=== PATIENT | female | born 1995 | race Caucasian/White ===

== ENCOUNTER 2020-10-01 13:31 | Observation (INO) | payer OTHER, SELFPAY ==
[2020-10-01 13:54] VITALS: BP 125/65; PULSE 103
[2020-10-01 14:00] VITALS: BP 133/68; PULSE 108
[2020-10-01] MEDS: FAMOTIDINE 20 MG/2 ML VIAL IV PUSH (15:29)
[2020-10-01] MEDS: METOCLOPRAMIDE HCL INJ 10 MG/2 ML VIAL IV PUSH ×2 (15:29→21:12)
[2020-10-01 15:32] LABS: Hematocrit 40.8 % (37.0-47.0); Hemoglobin 13.9 g/dL (12.0-15.0); Mean Corpuscular HGB Conc 34.1 g/dl (32-36); Mean Corpuscular Hemoglobin 28.4 pg (26-34); Mean Corpuscular Volume 83.3 fl (80-100); Mean Platelet Volume 10.1 fl (7.4-10.4); Platelet Count Result 253 k/mm3 (150-375); Red Cell Distribution Width 12.3 % (11.5-14.5)
[2020-10-01 15:47] LABS: Alanine Aminotransferase 22 U/L (4-35); Albumin Level 4.4 g/dL (3.5-5.1); Alkaline Phosphatase 90 U/L (38-126); Anion Gap 5 mmol/L (8-16); Aspartate Amino Transferase 23 U/L (14-36); Bilirubin,Total 0.6 mg/dL (0.2-1.3); Blood Urea Nitrogen 5 mg/dL (7-17); Calcium 9.3 mg/dL (8.4-10.2); Carbon Dioxide 27 mmol/L (22-30); Chloride 101 mmol/L (98-107); Estimated Glomerular Filt Rate > 60; Glucose 81 mg/dL (65-105); Potassium 3.8 mmol/L (3.4-5.0); Sodium 133 mmol/L (137-145)
[2020-10-01 16:28] VITALS: BP 125/65; PULSE 103; RESP 20; TEMP 36.5
[2020-10-01 16:29] VITALS: BMI 34.2
[2020-10-01 16:32] LABS: Add Urine Microscopic? YES; Appearance Urine Cloudy (Clear); Bacteria Urine Trace /hpf; Bilirubin Urine Negative (Negative); Blood Urine Negative (Negative); Color Urine Amber (Yellow); Glucose Urine UA Negative (Negative); Ketones Urine Negative (Negative); Leukocyte Esterase Ur Negative LEU/UL (Negative); Mucus Urine Heavy /lpf; Nitrate Urine Negative (Negative); Protein Urine 2+ mg/dL (Negative); Specific Grav Ur 1.027 (1.001-1.035); Squamous Epithelial Cell Urine Few /hpf (Few); Transitional Epi Cells Urine Rare /hpf (None Seen); WBC Urine 0-3 /hpf
[2020-10-01] MEDS: LACTATED RINGERS 1,000 ML 999 ML IV CONT (16:43)
[2020-10-01] MEDS: LACTATED RINGERS 1,000 ML 125 ML IV CONT (16:44)
--- NOTE | 2020-10-05 08:32 | PM.OBTRLD ---
OB - Triage/Final Diagnosis Visit Information Comments/Additional reasons for admission: I have assessed the risk for this patient, Nancy Paul, and determined that she would benefit from observation care. Evaluation Laboratory results: Laboratory Tests 10/01/20 10/01/20 10/01/20 14:11 15:20 16:16 WBC 10.0 RBC 4.90 Hgb 13.9 Hct 40.8 MCV 83.3 MCH 28.4 MCHC 34.1 RDW 12.3 Plt Count 253 MPV 10.1 Sodium 133 L Potassium 3.8 Chloride 101 Carbon Dioxide 27 Anion Gap 5 L BUN 5 L Creatinine 0.50 L Estim Creat Clear Calc Not Reportable Estimated GFR > 60 Glucose 81 Calcium 9.3 Total Bilirubin 0.6 AST 23 ALT 22 Alkaline Phosphatase 90 Total Protein 8.0 Albumin 4.4 Urine Color Josette Urine Appearance Cloudy H Urine pH 7.0 Ur Specific [place] 1.027 Urine Protein 2+ H Urine Glucose (UA) Negative Urine Ketones Negative Ur Blood (Man) Negative Urine Nitrate Negative Urine Bilirubin Negative Urine Urobilinogen 2.0 H Leukocyte Esterase Rfl Negative Urine RBC 3-5 H Urine WBC 0-3 Ur Squamous Epith Cells Few Ur Transition Epith Cell Rare Urine Bacteria Trace Urine Mucus Heavy H Final Diagnosis (1) Nausea/vomiting in : Code(s): O21.9 - Vomiting of , unspecified Status: Acute
== END 2020-10-01 21:46 | disposition home or self-care (01) ==
PROVIDERS: Admitting Provider Obstetrics & Gynecology; Visit Provider Obstetrics & Gynecology
DX: O21.9 Vomiting of pregnancy, unspecified (principal); Z3A.00 Weeks of gestation of pregnancy not specified
CPT/HCPCS: 36415; 80053; 81001; 85027; 96374; 96375; 96376; G0378; G0379; J2765; J7120

== ENCOUNTER 2020-10-07 08:58 | Observation (INO) | payer OTHER, SELFPAY ==
[2020-10-07] MEDS: LACTATED RINGERS 1,000 ML 999 ML IV CONT (09:30)
[2020-10-07 09:31] VITALS: BMI 33.8
[2020-10-07 09:41] VITALS: BP 107/62; PULSE 101
[2020-10-07] MEDS: METOCLOPRAMIDE HCL INJ 10 MG/2 ML VIAL IV PUSH (09:47)
[2020-10-07] MEDS: FAMOTIDINE 20 MG/2 ML VIAL IV PUSH (09:52)
[2020-10-07] MEDS: LACTATED RINGERS 1,000 ML 150 ML IV CONT (10:37)
--- NOTE | 2020-10-07 15:20 | PC.NURSE ---
Standing orders per Dr. Feldman for hyperemesis.
--- NOTE | 2020-10-10 07:14 | PM.OBTRLD ---
OB - Triage/Final Diagnosis Visit Information Reason for evaluation: other ( hyper hyperemesis) Comments/Additional reasons for admission: I have assessed the risk for this patient, Nancy Paul, and determined that she would benefit from observation care.
== END 2020-10-07 15:22 | disposition home or self-care (01) ==
PROVIDERS: Admitting Provider Obstetrics & Gynecology; PCP Family Medicine; Visit Provider Obstetrics & Gynecology
DX: O21.0 Mild hyperemesis gravidarum (principal); Z3A.09 9 weeks gestation of pregnancy
CPT/HCPCS: 96361; 96374; 96375; G0378; G0379; J2765; J7120

== ENCOUNTER 2020-10-08 19:25 | Observation (INO) | payer OTHER, SELFPAY ==
[2020-10-08 19:35] VITALS: BP 137/70; PULSE 97
[2020-10-08 19:40] VITALS: BP 137/70; PULSE 97; RESP 16; TEMP 37
[2020-10-08] MEDS: LACTATED RINGERS 1,000 ML 999 ML IV CONT (20:22)
[2020-10-08] MEDS: METOCLOPRAMIDE HCL INJ 10 MG/2 ML VIAL IV PUSH (20:22)
[2020-10-08 21:23] VITALS: BMI 33.7
--- NOTE | 2020-10-08 21:27 | PC.NURSE ---
This patient, Nnacy Paul, admitted to the OB room OB Post 115 for observation due to hyperemesis. Patient states she has been unable to keep anything down since she received IVF yesterday afternoon. States began vomiting when arrived home. Patient/family oriented to hospital policies and general routines including ID bracelet, bed and alarms, visiting hours, pain management, procedures, bathroom and other care routines, personal items, smoking policy, room service/diet, and visiting hours. Patient/Family are encouraged to report perceived risks to care and to ask questions if they do not understand what they are told or what they should do.
[2020-10-08] MEDS: THIAMINE HCL INJ 100 MG, FOLIC ACID INJ 1 MG, MULTIVITAMINS-12 INJ VIAL 1 5 ML, MULTIVI... IV CONT (21:59)
[2020-10-08] MEDS: FAMOTIDINE 20 MG/2 ML VIAL IV PUSH (22:44)
--- NOTE | 2020-10-08 23:14 | PC.NURSE ---
2044 States Reglan is helping with nausea. Requesting ice chips. 2219 States hungry and would like to try a turkey sandwich. Lunch box given. 2244 States was only able to eat about one half a piece of turkey and a few bites of peaches. Requesting Pepcid. 2304 States Pepcid has helped a little bit. Wants to wait on PO meds and refuses Phenergan at this time.
[2020-10-09 02:10] VITALS: BP 111/51; PULSE 90; RESP 16; TEMP 36.6
[2020-10-09 02:17] VITALS: BP 111/51; PULSE 90
[2020-10-09] MEDS: METOCLOPRAMIDE HCL INJ 10 MG/2 ML VIAL IV PUSH ×3 (02:19→14:45)
[2020-10-09] MEDS: METOPROLOL TARTRATE 25 MG TABLET PO (03:17)
[2020-10-09] MEDS: ARIPiprazole 5 MG TABLET PO (03:17)
--- NOTE | 2020-10-09 03:21 | PC.NURSE ---
0220 Awake in bed. States feeling very nauseous. Rates at 8 on scale 1-10. Reglan given IVP. Wants to still wait on PO meds. 0250 States Reglan has helped and rates nausea at 3-4 now. Requesting peaches. 0320 Ate entire cup of peaches. States tasted really good and nausea is still better. Offered PO meds. States wants to try to take them now.
[2020-10-09] MEDS: PROMETHAZINE HCL 25 MG SUPP.RECT RECTAL (06:59)
[2020-10-09 07:10] VITALS: BP 104/54; PULSE 77
[2020-10-09] MEDS: DEXTROSE 5%/LACTATED RINGERS 1,000 ML 200 ML IV CONT (08:07)
[2020-10-09] MEDS: FAMOTIDINE 20 MG/2 ML VIAL IV PUSH (08:34)
[2020-10-09 10:33] VITALS: BP 109/52; PULSE 82
[2020-10-09 10:37] VITALS: PULSE 82
--- NOTE | 2020-10-09 14:09 | PM.IMHP ---
H&P: HPI History of Present Illness Date/Time: 10/09/20 14:09 Nancy is a 25yo @ 9.6wks (PATRICIA [birth year]) who presented to L&D last night. She has hyperemesis and been needing IV fluids at least twice weekly. If she's hydrated, her nausea is improved and she can eat. She is taking reglan. She reports that zofran, phenergan and compazine all make her chronic migraines significantly worse. She has not been taking B6 + unisom due to the nausea. Overnight she was given pepcid, phenergan suppository, and iv fluids. the phenergan helped her nausea; but gave her a severe headache, which resolved with IV tynelol. No cramping/ bleeding/ abdominal pain, CP. SOB, vision changes. Today, she is feeling better. She would like to go home. She has tolerated peaches and turkey. Had a BM yesterday. No dysuria. Chief Complaint: vomiting Review of Systems Review of Systems: All systems reviewed & are unremarkable except as noted in HPI and below (HPI) Meds Home Medications and Allergies Home Medications Medication Instructions Recorded Confirmed Type aripiprazole [Abilify] 5 mg PO DAILY 10/07/20 10/08/20 History metoclopramide HCl [Reglan] 10 mg PO Q6H PRN 10/07/20 10/08/20 History metoprolol tartrate 25 mg PO BID 10/07/20 10/08/20 History Allergies Allergy/AdvReac Type Severity Reaction Status Date / Time Penicillins Allergy Rash Verified 10/01/20 14:28 Sulfa (Sulfonamide Allergy Swelling Verified 10/01/20 14:29 Antibiotics) of Lip/Tongue/Throat prochlorperazine AdvReac Severe Hypotension Verified 10/01/20 14:26 [From Compazine] ondansetron [From Zofran] AdvReac Headache Verified 10/01/20 14:27 tramadol AdvReac Migraine Verified 10/01/20 14:30 Vital Signs Vital Signs - 24 hr 10/08/20 19:35 10/08/20 19:40 10/09/20 02:10 Temperature 37.0 C 36.6 C Pulse Rate 97 97 90 Respiratory Rate 16 16 Blood Pressure 137/70 137/70 111/51 L 10/09/20 02:17 10/09/20 07:10 10/09/20 10:33 Temperature Pulse Rate 90 77 82 Respiratory Rate Blood Pressure 111/51 L 104/54 L 109/52 L 10/09/20 10:37 Temperature Pulse Rate 82 Respiratory Rate Blood Pressure Exam Const: General: cooperative, healthy appearing, comfortable and no acute distress Resp: Effort & Inspection: normal respiratory effort and able to speak in complete sentences Auscultation: clear to auscultation bilaterally Cardio: Rate: regular rate GI: Inspection: non-distended GI Palp: No abdominal tenderness and Yes Soft to palpation Auscultation: normal bowel sounds Skin: General skin exam: normal color Neuro: General: patient oriented x3 Psych: Appearance: grossly normal Affect: normal affect Attitude: cooperative Assessment and Plan Assessment and plan (1) Nausea/vomiting in : Code(s): O21.9 - Vomiting of , unspecified Status: Acute Additional Plan I had a detailed discussion regarding needing to take relgan 10mg q6h and B6 25mg TID + unisom 1/2 tab BID at all times, even if feeling nauseous. She needs to eat small, frequent, bland meals to keep her sugar levels up. She also needs to stay hydrated. Pt would prefer IV fluids at home. Our office is attempting to set up home health (PIV vs PICC undetermined at this time), however, may not be approved by insurance. Pt already set up to get IV fluids at [place] on Tue/Fri if needed. Plan for discharge home today. Pt did not need scripts; has at home. ER precautions. F/u in [facility] in 1-2wks.
== END 2020-10-09 15:15 | disposition home or self-care (01) ==
PROVIDERS: Admitting Provider Obstetrics & Gynecology; Visit Provider Obstetrics & Gynecology
DX: O21.9 Vomiting of pregnancy, unspecified (principal); Z3A.09 9 weeks gestation of pregnancy
CPT/HCPCS: 96361; 96365; 96366; 96375; 96376; A9270; G0378; G0379; J0131; J2765; J3411; J3475; J7120; J7121

== ENCOUNTER 2020-10-13 22:21 | Observation (INO) | payer OTHER, SELFPAY ==
[2020-10-13 22:27] VITALS: BP 125/61; PULSE 100
[2020-10-13 22:30] VITALS: TEMP 36.6
[2020-10-13 22:31] VITALS: BP 113/49; PULSE 91
[2020-10-13 23:19] VITALS: BMI 33.3
--- NOTE | 2020-10-13 23:20 | OBADM ---
This patient, Nancy Paul, admitted to the OB room OB Post 113 for observation. Patient/family oriented to hospital policies and general routines including ID bracelet, bed and alarms, visiting hours, pain management, procedures, bathroom and other care routines, personal items, smoking policy, room service/diet, and visiting hours. Patient/Family are encouraged to report perceived risks to care and to ask questions if they do not understand what they are told or what they should do.
[2020-10-13] MEDS: FAMOTIDINE 20 MG/2 ML VIAL IV PUSH (23:45)
[2020-10-13] MEDS: DEXTROSE 5%/LACTATED RINGERS 1,000 ML 999 ML IV CONT (23:45)
[2020-10-13] MEDS: DEXTROSE 5%/LACTATED RINGERS 1,000 ML 150 ML IV CONT (23:52)
[2020-10-13] MEDS: METOCLOPRAMIDE HCL INJ 10 MG/2 ML VIAL IV PUSH (23:52)
[2020-10-14] MEDS: DEXTROSE 5%/LACTATED RINGERS 1,000 ML 150 ML IV CONT ×2 (00:19→06:53)
[2020-10-14] MEDS: METOCLOPRAMIDE HCL INJ 10 MG/2 ML VIAL IV PUSH ×2 (05:48→11:45)
[2020-10-14] MEDS: FAMOTIDINE 20 MG/2 ML VIAL IV PUSH (09:07)
--- NOTE | 2020-10-14 09:58 | PC.NURSE ---
Spoke with Do from [facility]. Will talk with insurance to see if pt is able to get a reglan pump.
--- NOTE | 2020-10-14 11:45 | PC.NURSE ---
Pt states she still has a headache, history of migraines. States when she has gone to the ED with migraines they give her benadryl. Will get her benadryl.
[2020-10-14] MEDS: diphenhydrAMINE HCl INJ 50 MG/ML VIAL 25 MG IV PUSH (12:09)
--- NOTE | 2020-10-14 14:28 | PCCCNOTE ---
CC received a referral for a reglan pump and IV Fluids. Pt.'s physician does not want pt. to D/C with a PICC line so they have canceled the order for fluids. CC faxed a referral to [facility] for a reglan pump. Per Doreen at [facility], pt. will have an out of pocket cost on $90 a week. [facility] will follow pt. to provided nursing as well as the medication and equipment needed. Doreen discussed cost and plan with pt. Pt. is aware that the pump will be delivered tonight (10/14/20) and nursing will arrive tomorrow (10/15/20) to educate pt. on pump. Pt. was agreeable to plan and cost. Pt. discharged from [facility] before CC could complete assessment. No further need for CC services at this time.
--- NOTE | 2020-10-18 08:59 | PM.OBTRLD ---
OB - Triage/Final Diagnosis Visit Information Reason for evaluation: other (hypermemsis) Comments/Additional reasons for admission: I have assessed the risk for this patient, Nancy Paul, and determined that she would benefit from observation care.
== END 2020-10-14 14:00 | disposition home or self-care (01) ==
PROVIDERS: Admitting Provider Obstetrics & Gynecology; Visit Provider Obstetrics & Gynecology
DX: O21.0 Mild hyperemesis gravidarum (principal); Z3A.00 Weeks of gestation of pregnancy not specified
CPT/HCPCS: 96361; 96365; 96366; 96374; 96375; 96376; G0378; G0379; J0131; J1200; J2765; J7121